=== PATIENT | female | born 1965 | race Caucasian/White ===

== ENCOUNTER 2016-11-16 14:39 | Outpatient (CLI) | payer MEDICARE, MEDICAID ==
--- NOTE | 2016-11-16 22:41 | ULT ---
RIGHT UPPER EXTREMITY VENOUS ULTRASOUND 11/16/16 Ultrasonography of the deep veins of the right upper extremity was performed. The scan covered an ar ea from the jugular venous system at the base of the neck down through the distal radial and ulnar b ranches. All deep veins were freely compressible. No echogenic clot was seen. There was normal doppl er response to augmentation maneuvers. IMPRESSION: No evidence of DVT. POS: HOME
== END 2016-11-16 14:40 | disposition home or self-care (01) ==
LOC: BURULT 14:39
PROVIDERS: ATTEND Family Medicine
DX: M79.601 Pain in right arm (principal)

== ENCOUNTER 2017-02-28 11:15 | Outpatient (CLI) | payer MEDICARE, MEDICAID ==
[2017-02-28 12:01] LABS: ALT (SGPT) 11 U/L (8-55); AST (SGOT) 19 U/L (5-34); Alkaline Phosphatase 139 U/L (40-150); Anion Gap 18 mmol/L (10-20); BUN (Urea Nitrogen) 11 mg/dL (9.8-20.1); Bilirubin, Total 0.4 mg/dL (0.2-1.2); Calc. Creatinine Clearance 0 mL/min (70-130); Calcium 9.6 mg/dL (7.8-10.44); Carbon Dioxide 22 mmol/L (22-29); Chloride 106 mmol/L (98-107); Estimated GFR-MDRD Greater than 90; Globulin 3.8 g/dL (2.4-3.5); Glucose 109 mg/dL (70-105); Potassium 4.4 mmol/L (3.5-5.1); Protein, Total 7.8 g/dL (6.0-8.3); Sodium 142 mmol/L (136-145)
[2017-02-28 12:08] LABS: #Basophils 0.1 thou/uL (0.0-0.2); #Eosinphils 0.1 thou/uL (0.0-0.7); #Lymphocytes 2.2 thou/uL (1.20-3.40); #Monocytes 0.4 thou/uL (0.11-0.59); #Neutrophils 5.3 thou/uL (1.40-6.50); %Basophils 1.1 % (0.0-1.0); %Lymphocytes 27.7 % (21.0-51.0); %Monocytes 4.7 % (0.0-10.0); %Neutrophils 65.5 % (42.0-75.0); Hemoglobin 15.1 g/dL (12.0-16.0); Mean Corpuscular HGB CONC 31.7 g/dL (32.0-36.0); Mean Corpuscular Hemoglobin 26.9 pg (27.0-31.0); Mean Platelet Volume 8.2 fL (7.4-10.4); Platelet Count 253 thou/uL (130-400); RBC Distribution Width 14.5 % (11.5-14.5); Red Blood Cell (RBC) Count 5.61 mill/uL (4.20-5.40); White Blood Cell (WBC) Count 8.1 thou/uL (4.8-10.8)
--- NOTE | 2017-02-28 16:41 | CT ---
CT CHEST WITH IV CONTRAST CT ABDOMEN AND PELVIS WITH IV CONTRAST: HISTORY: Chest and abdomen pain. Tobacco abuse. Right arm mass. FINDINGS: Within the right upper lobe, an oval mass with spiculated margins is 1.1 x 0.9 cm greatest diameters on the axial images. Lungs are otherwise hyperinflated with scattered emphysematous changes. Cent ered at the right paratracheal and pretracheal level of the mediastinum is a lobulated smoothly guero inated homogeneous fluid density mass measuring up to 5.0 cm length x 4.0 cm depth x 2.6 cm width. It partially encases the adjacent superior vena cava and brachiocephalic artery. No pleural fluid i s evident. Hyperdense stones are noted within the decompressed gallbladder. The liver, spleen, kidneys, adrenal glands, and pancreas otherwise have a normal CT appearance. The re is calcification in the arterial structures. Numerous diverticula arise from the colon without adjacent inflammation. Lack of oral contrast limi ts evaluation of the bowel. Appendix is not inflamed. IMPRESSION: 1. Small spiculated right upper lobe lung mass is suspicious for neoplasm, primary versus metastati c. The lobulated homogeneous fluid density lesion within the mediastinum was favored to represent a congenital cystic process rather than mediastinal adenopathy. Please consider pulmonary medicine e valuation. Radionuclide PET scan could be used to evaluate for hypermetabolic activity of the media stinal abnormality and the possibility of metastatic disease. 2. Cholelithiasis. 3. Diverticulosis. No evidence of diverticulitis. 4. Atherosclerosis. POS: [facility]
== END 2017-02-28 11:16 | disposition home or self-care (01) ==
LOC: BURCT 11:15
PROVIDERS: ATTEND Family Medicine
DX: F17.200 Nicotine dependence, unspecified, uncomplicated (principal); R22.31 Localized swelling, mass and lump, right upper limb
CPT/HCPCS: 36415; 71260; 74177; 80053; 85025

== ENCOUNTER 2017-03-04 17:47 | Observation (INO) | payer MEDICARE, MEDICAID ==
[2017-03-04] MEDS ORDERED: Ondansetron HCl/PF 4 MG/2 ML Vial ONE (20:06)
[2017-03-04] MEDS ORDERED: Ketorolac Tromethamine 30 MG/ML VIAL ONE (20:06)
[2017-03-04 20:30] LABS: #Basophils 0.1 thou/uL (0.0-0.2); #Eosinphils 0.2 thou/uL (0.0-0.7); #Lymphocytes 4.1 thou/uL (1.20-3.40); #Monocytes 0.7 thou/uL (0.11-0.59); #Neutrophils 8.3 thou/uL (1.40-6.50); %Basophils 1.1 % (0.0-1.0); %Eosinophils 1.4 % (0.0-10.0); %Lymphocytes 30.5 % (21.0-51.0); %Monocytes 5.2 % (0.0-10.0); %Neutrophils 61.8 % (42.0-75.0); Mean Corpuscular HGB CONC 32.7 g/dL (32.0-36.0); Mean Corpuscular Hemoglobin 27.5 pg (27.0-31.0); Mean Corpuscular Volume 84.1 fl (81.0-99.0); Mean Platelet Volume 9.1 fL (7.4-10.4); Platelet Count 284 thou/uL (130-400); Red Blood Cell (RBC) Count 5.46 mill/uL (4.20-5.40); White Blood Cell (WBC) Count 13.5 thou/uL (4.8-10.8)
[2017-03-04 20:43] LABS: ALT (SGPT) 9 U/L (8-55); AST (SGOT) 11 U/L (5-34); Albumin 4.1 g/dL (3.5-5.0); Alkaline Phosphatase 182 U/L (40-150); Anion Gap 16 mmol/L (10-20); BUN (Urea Nitrogen) 10 mg/dL (9.8-20.1); Bilirubin, Total 0.4 mg/dL (0.2-1.2); Calc. Creatinine Clearance 0 mL/min (70-130); Calcium 9.4 mg/dL (7.8-10.44); Carbon Dioxide 23 mmol/L (22-29); Chloride 107 mmol/L (98-107); Estimated GFR-MDRD Greater than 90; Globulin 3.1 g/dL (2.4-3.5); Glucose 95 mg/dL (70-105); Potassium 3.9 mmol/L (3.5-5.1); Protein, Total 7.2 g/dL (6.0-8.3); Sodium 142 mmol/L (136-145)
--- NOTE | 2017-03-04 20:56 | RAD ---
TWO VIEWS OF THE RIGHT HUMERUS 03/04/17 HISTORY: Right arm pain. COMPARISON: Views of the right elbow obtained at [facility] on 02/27/17. Again noted in the distal humeral dialysis extending to the metadiaphysis is a large lytic lesion wi th faint periosteal reaction and what appears to be associated soft tissue mass. This measures 8 cm in length. No additional lytic or sclerotic lesion is seen within the right humerus. There is no alejandro dence of a fracture. IMPRESSION: Lytic lesion distal right humeral diaphysis extending into the metadiaphysis with adjacent periostea l reaction and soft tissue mass. Surgical consultation is advised. MRI with and without IV contrast may be beneficial as suggested on prior exam. POS: [facility]
[2017-03-04] MEDS ORDERED: HYDROcodone/Acetaminophen 5/325 mg Tablet PO PRN (22:36)
[2017-03-04] MEDS ORDERED: Ondansetron ODT 4 MG TAB SL PRN (22:36)
[2017-03-04] MEDS ORDERED: Ondansetron HCl/PF 4 MG/2 ML Vial IVP PRN (22:36)
[2017-03-04] MEDS ORDERED: fentaNYL 50 mcg/hour Patch TD SCH (22:45)
[2017-03-04] MEDS: HYDROcodone/Acetaminophen 5/325 mg Tablet PO PRN (22:50)
[2017-03-05 00:32] VITALS: BMI 32.1
[2017-03-05] MEDS ORDERED: SUMAtriptan Succinate 6 MG/0.5 ML VIAL ONE ×2 (02:11→15:07)
[2017-03-05] MEDS: SUMAtriptan Succinate 6 MG/0.5 ML VIAL SC PRN ×2 (02:21→15:12)
[2017-03-05] MEDS: HYDROcodone/Acetaminophen 5/325 mg Tablet PO PRN (05:41)
[2017-03-05] MEDS ORDERED: fentaNYL 50 mcg/hour Patch TD SCH (05:45)
[2017-03-05] MEDS ORDERED: Ketorolac Tromethamine 30 MG/ML VIAL ONE ×2 (06:04→10:35)
[2017-03-05] MEDS: Ketorolac Tromethamine 30 MG/ML VIAL IVP PRN ×2 (06:07→13:30)
[2017-03-05 20:19] VITALS: BP 108/66; TEMP 98.5
[2017-03-06] MEDS ORDERED: fentaNYL 50 mcg/hour Patch TD SCH (17:30)
== END 2017-03-05 20:10 | disposition home or self-care (01) ==
LOC: BURERS 17:47 → BURMED 20:45
PROVIDERS: ADMIT Family Medicine; ATTEND Family Medicine
DX: G89.3 Neoplasm related pain (acute) (chronic) (principal); C41.9 Malignant neoplasm of bone and articular cartilage, unspecified; C79.9 Secondary malignant neoplasm of unspecified site; F17.210 Nicotine dependence, cigarettes, uncomplicated; Z79.891 Long term (current) use of opiate analgesic
CPT/HCPCS: 80053; 85025; 96372; 96374; 96375; 96376; A4216; G0378; J1885; J2270; J2405; J3030